=== PATIENT | male | born 1945 | race Caucasian/White ===

== ENCOUNTER 2021-10-10 10:52 | Emergency (ER) | payer OTHER ==
[~2021-10-10] VITALS: Ht 170.2 cm; Wt 83.5 kg
--- NOTE | 2021-10-10 11:00 | NUR ---
BIBA RA102 "coughing x3wks today got up felt lightheaded almost fainted Also feel lymph nodes swollen". to ER bed 6, hooked to monitor, noted sinus rhythm, vital signs stable, changed to hosp gown, warm blanket provided. Patient AAO x 4. breathing even and unlabored. Awaiting MD vilchis.
--- NOTE | 2021-10-10 11:10 | NUR ---
Dr Blackwood at bedside
--- NOTE | 2021-10-10 11:39 | NUR ---
RAPID COVID AND RAPID INFLUENZA DONE AND SENT TO LAB
--- NOTE | 2021-10-10 11:41 | NUR ---
process mold technician at bedside
[2021-10-10] MEDS ORDERED: SILD20TA2 PO (11:42)
[2021-10-10] MEDS ORDERED: ATOR20TA PO (11:42)
[2021-10-10] MEDS ORDERED: TIMO5DRO18 EACHEYE (11:42)
[2021-10-10 11:57] LABS: BASOPHILS % (AUTO) 0.5 % (0.0-2.0); EOSINOPHILS % (AUTO) 1.1 % (0.0-6.0); HEMATOCRIT 38 % (39-51); HEMOGLOBIN 12.6 g/dL (13.5-17.5); LYMPHOCYTES # (AUTO) 0.9 K/uL (0.8-4.8); LYMPHOCYTES % (AUTO) 12.1 % (20.0-44.0); MEAN CORPUSCULAR HGB CONC 33 g/dl (31.0-36.0); MEAN CORPUSCULAR VOLUME 88 fL (80-96); MONOCYTES # (AUTO) 1.1 K/uL (0.1-1.30); MONOCYTES % (AUTO) 15.1 % (2.0-12.0); NEUTROPHILS # (AUTO) 5.3 K/uL (1.8-8.9); NEUTROPHILS % (AUTO) 71.2 % (43.0-81.0); PLATELET COUNT (AUTO) 139 K/uL (150-450); RED BLOOD CELL COUNT(AUTO) 4.37 MIL/uL (4.5-6.0); WHITE BLOOD COUNT (AUTO) 7.5 K/uL (4.3-11.0)
[2021-10-10 11:59] LABS: ALANINE AMINOTRANSFERASE 19 U/L (12-78); ALBUMIN 2.9 g/dL (3.4-5.0); ALKALINE PHOSPHATASE 70 U/L (46-116); ASPARTATE AMINOTRANSFERASE 18 U/L (15-37); BILIRUBIN,DIRECT 0.2 mg/dL (0.0-0.2); BILIRUBIN,TOTAL 0.8 mg/dL (0.2-1.0); CALCIUM, SERUM 8.7 mg/dL (8.5-10.1); CARBON DIOXIDE 26 mmol/L (21-32); CHLORIDE 101 mmol/L (98-107); CREATININE 0.9 mg/dL (0.6-1.3); GLUCOSE 107 mg/dL (74-106); POTASSIUM 3.9 mmol/L (3.5-5.1); SODIUM SERUM 135 mmol/L (136-145); UREA NITROGEN, BLOOD 14 mg/dL (7-18)
[2021-10-10] MEDS ORDERED: LATA2.5D15 EACHEYE (12:17)
[2021-10-10 14:09] VITALS: BP 117/68
--- NOTE | 2021-10-10 14:09 | NUR ---
IV removed. Catheter intact and site benign. Pressure and 4x4 applied to site. No bleeding noted.Patient discharged to home in stable condition. Written and verbal after care instructions given. Patient verbalizes understanding of instruction.
[2021-10-10 15:02] LABS: LYMPHOCYTES % (MANUAL) 13 % (16-48); MONOCYTES % (MANUAL) 16 % (0-11.0); NEUTROPHILS % (MANUAL) 71 (42-76)
== END 2021-10-10 14:09 | disposition home or self-care (01) ==
LOC: ER 10:58
DX: R55 Syncope and collapse (principal); R05.9 Cough, unspecified; Z20.822 Contact with and (suspected) exposure to COVID-19; D64.9 Anemia, unspecified; D69.6 Thrombocytopenia, unspecified; E88.09 Other disorders of plasma-protein metabolism, not elsewhere classified; Z88.2 Allergy status to sulfonamides; Z85.72 Personal history of non-Hodgkin lymphomas; I10 Essential (primary) hypertension; E78.5 Hyperlipidemia, unspecified
CPT/HCPCS: 36415; 71045; 80048; 80076; 83605; 84484 ×2; 85007; 85025; 87040 ×2; 87426; 87804; 93005; 99285; C9803